=== PATIENT | female | born 1950 | race Caucasian/White ===

== ENCOUNTER 2019-05-13 03:51 | Observation (INO) ==
[2019-05-13] MEDS ORDERED: ONDANSETRON 4 MG/2 ML VIAL IV STA (04:21)
[2019-05-13] MEDS ORDERED: SODIUM CHLORIDE 0.9% 500 ML IV STA (04:21)
[2019-05-13] MEDS ORDERED: PANTOPRAZOLE 40 MG VIAL IV STA (04:21)
[2019-05-13 04:36] LABS: Basophils % 0.2 % (0.0-0.8); Hematocrit 32.9 VOL% (35.7-47.0); Immature Granulocytes % 0.7 %; Immature Granulocytes Absolute 0.09 #; Lymphocytes # 1.8 10*3/uL (1.4-4.0); Lymphocytes % 14.6 % (21.3-54.2); Mean Corpuscular HGB Conc 30.4 GM/DL (32-36); Mean Corpuscular Volume 88.7 FL (87-102); Mean Platelet Volume 11.2 FL (9.6-12.0); Monocytes % 9.7 % (1.7-12.7); Neutrophils % 74.8 % (38.7-73.9); Platelet Count 293 T/CUMM (130-400); Red Blood Count 3.71 MC/CUMM (3.8-5.5); Red Cell Distribution Width 24.4 % (9.3-17.3); White Blood Count 12.5 T/CUMM (4-12)
[2019-05-13 05:07] LABS: Alanine Aminotransferase 22 U/L (13-56); Albumin 2.8 G/DL (3.4-5.0); Alkaline Phosphatase 84 U/L (45-117); Amylase 58 U/L (25-115); Aspartate Amino Transferase 16 U/L (0-37); Bilirubin,Total < 0.39 MG/DL (0.2-1.0); Blood Urea Nitrogen 47 MG/DL (7-18); Calcium 8.4 MG/DL (8.5-10.1); Glucose 118 MG/DL (74-106); Osmolality,Calculated 293.3 MOS/KG (273-304); Total Protein 6.1 G/DL (6.4-8.3)
[2019-05-13 05:12] LABS: Hypochromasia Slight; Platelet Estimate Normal
[2019-05-13] MEDS ORDERED: NICOTINE 21 MG/24 HR PATCH TRANSDERM PRN (05:48)
[2019-05-13] MEDS ORDERED: PROMETHAZINE 25 MG/1 ML VIAL IM PRN (05:48)
[2019-05-13] MEDS ORDERED: MORPHINE 4 MG/1 ML VIAL IV PRN (05:48)
[2019-05-13] MEDS ORDERED: ONDANSETRON 4 MG/2 ML VIAL IV PRN (05:48)
[2019-05-13] MEDS: SODIUM CHLORIDE 0.9% 1,000 ML IV SCH (09:01)
[2019-05-13] MEDS: SERTRALINE 100 MG TABLET PO SCH (09:06)
[2019-05-13 12:49] LABS: Basophils % 0.3 % (0.0-0.8); Hematocrit 28.2 VOL% (35.7-47.0); Hemoglobin 8.9 GM/DL (12.0-16.0); Immature Granulocytes % 0.5 %; Immature Granulocytes Absolute 0.05 #; Lymphocytes # 2.9 10*3/uL (1.4-4.0); Mean Corpuscular HGB Conc 31.6 GM/DL (32-36); Mean Corpuscular Volume 88.1 FL (87-102); Mean Platelet Volume 11.3 FL (9.6-12.0); Monocytes % 9.3 % (1.7-12.7); Neutrophils % 59.9 % (38.7-73.9); Platelet Count 265 T/CUMM (130-400); White Blood Count 9.6 T/CUMM (4-12)
[2019-05-13 13:06] LABS: Platelet Estimate Normal
[2019-05-13 13:07] LABS: Anisocytosis 1+
[2019-05-13] MEDS ORDERED: predniSONE 20 MG TABLET PO SCH (15:00)
[2019-05-13 15:37] LABS: Apearance,Urine CLEAR (Clear); Bacteria,Urine Occasional /HPF (Few); Bilirubin,Urine Negative (Negative); Blood, Urine Negative (Negative); Glucose,Urine (UA) Negative (Negative); Ketones,Urine Negative (Negative); Mucus,Urine Occasional /LPF (Occasional); Nitrite,Urine Negative (Negative); Protein,Urine Negative; RBC,Urine 4 /HPF (0-4); Squamous Epithelial Cell,Urine Occasional /HPF (0-10); Urine Color Yellow (Yellow); Urine Specific Gravity 1.044 (1.001-1.035); Urine Urobilinogen < 2.0 EU/DL (0.2-1.0); WBC,Urine 4 /HPF (0-6)
[2019-05-13 16:51] LABS: Hemoglobin 8.4 GM/DL (12.0-16.0)
[2019-05-13] MEDS ORDERED: SODIUM CHLORIDE 0.9% 1,000 ML IV PRN (19:55)
[2019-05-13 20:24] LABS: Hemoglobin 8.9 GM/DL (12.0-16.0)
[2019-05-13] MEDS: PANTOPRAZOLE 40 MG VIAL IV SCH (22:50)
[2019-05-13] MEDS ORDERED: diphenhydrAMINE CAP 25 MG CAPSULE PO ONE (23:28)
[2019-05-14] MEDS: SODIUM CHLORIDE 0.9% 1,000 ML IV SCH (03:50)
[2019-05-14 05:20] LABS: Basophils % 0.4 % (0.0-0.8); Eosinophils % 0.3 % (0.00-10.9); Hematocrit 23.1 VOL% (35.7-47.0); Hemoglobin 7.1 GM/DL (12.0-16.0); Immature Granulocytes % 0.7 %; Immature Granulocytes Absolute 0.05 #; Lymphocytes # 3.1 10*3/uL (1.4-4.0); Lymphocytes % 41.5 % (21.3-54.2); Mean Corpuscular HGB Conc 30.7 GM/DL (32-36); Mean Corpuscular Volume 88.8 FL (87-102); Mean Platelet Volume 11.1 FL (9.6-12.0); Monocytes % 9.4 % (1.7-12.7); Neutrophils % 47.7 % (38.7-73.9); Platelet Count 206 T/CUMM (130-400); White Blood Count 7.4 T/CUMM (4-12)
[2019-05-14 05:33] LABS: Calcium 8.1 MG/DL (8.5-10.1); Osmolality,Calculated 294.8 MOS/KG (273-304)
[2019-05-14 05:45] LABS: Hypochromasia 1+; Ovalocytes 1+; Platelet Estimate Normal
[2019-05-14] MEDS ORDERED: PROPOFOL 200 MG/20 ML VIAL IV ONE (09:00)
[2019-05-14] MEDS ORDERED: LIDOCAINE 2% 5 ML VIAL ONE (09:00)
[2019-05-14] MEDS: LETROZOLE 2.5 MG TABLET PO SCH (10:40)
[2019-05-14] MEDS: SERTRALINE 100 MG TABLET PO SCH (10:40)
[2019-05-14] MEDS: FUROSEMIDE 20 MG/2 ML VIAL IV PRN ×2 (11:50→15:14)
[2019-05-14] MEDS: PANTOPRAZOLE 40 MG VIAL IV SCH (11:50)
[2019-05-14 16:51] LABS: Hematocrit 33.5 VOL% (35.7-47.0)
[2019-05-14 16:54] LABS: Hemoglobin 10.8 GM/DL (12.0-16.0)
[2019-05-14] MEDS ORDERED: predniSONE 20 MG TABLET PO SCH (21:00)
[2019-05-14] MEDS: PANTOPRAZOLE 40 MG TABLET PO SCH (21:47)
[2019-05-15 05:43] LABS: Basophils % 0.6 % (0.0-0.8); Eosinophils # 0.1 10*3/uL (0.0-0.87); Eosinophils % 1.6 % (0.00-10.9); Hematocrit 31.5 VOL% (35.7-47.0); Hemoglobin 10.1 GM/DL (12.0-16.0); Immature Granulocytes % 0.7 %; Immature Granulocytes Absolute 0.05 #; Lymphocytes # 2.4 10*3/uL (1.4-4.0); Mean Corpuscular HGB Conc 32.1 GM/DL (32-36); Mean Platelet Volume 11.5 FL (9.6-12.0); Monocytes % 9.9 % (1.7-12.7); Neutrophils % 52.2 % (38.7-73.9); Platelet Count 214 T/CUMM (130-400); Red Blood Count 3.62 MC/CUMM (3.8-5.5); Red Cell Distribution Width 21.1 % (9.3-17.3); White Blood Count 6.9 T/CUMM (4-12)
[2019-05-15 06:02] LABS: Calcium 8.6 MG/DL (8.5-10.1)
[2019-05-15] MEDS: SERTRALINE 100 MG TABLET PO SCH (08:44)
[2019-05-15] MEDS: LETROZOLE 2.5 MG TABLET PO SCH (08:44)
[2019-05-15] MEDS: PANTOPRAZOLE 40 MG TABLET PO SCH (08:44)
[2019-05-15 12:00] VITALS: BP 164/74
== END 2019-05-15 13:05 | disposition home or self-care (01) ==
LOC: EDUNIT# → N.EDINP 03:51 → N.ED 03:51 → N.2E 06:54
PROVIDERS: ADMIT Internal Medicine; ATTEND Internal Medicine

== ENCOUNTER 2020-02-17 21:16 | Inpatient (IN) ==
[2020-02-17] MEDS ORDERED: AZITHROMYCIN INJ 500 MG in SODIUM CHLORIDE 0.9% 250 ML IV STA (22:01)
[2020-02-17] MEDS ORDERED: ONDANSETRON 4 MG/2 ML VIAL IV STA (22:01)
[2020-02-17] MEDS ORDERED: methylPREDNISolone SOD SUC 125 MG/2 ML VIAL IV STA (22:01)
[2020-02-17 22:17] LABS: Basophils % 0.2 % (0.0-0.8); Eosinophils # 0.1 10*3/uL (0.0-0.87); Eosinophils % 1.8 % (0.00-10.9); Hematocrit 37.8 VOL% (35.7-47.0); Hemoglobin 12.1 GM/DL (12.0-16.0); Immature Granulocytes % 0.7 %; Immature Granulocytes Absolute 0.03 #; Lymphocytes # 0.3 10*3/uL (1.4-4.0); Lymphocytes % 7.3 % (21.3-54.2); Mean Corpuscular Volume 89.8 FL (87-102); Mean Platelet Volume 11.3 FL (9.6-12.0); Monocytes % 2.5 % (1.7-12.7); Neutrophils % 87.5 % (38.7-73.9); Platelet Count 158 T/CUMM (130-400); Red Blood Count 4.21 MC/CUMM (3.8-5.5); Red Cell Distribution Width 14.1 % (9.3-17.3); White Blood Count 4.4 T/CUMM (4-12)
[2020-02-17 22:27] LABS: PT Patient Result 10.3 SECS (9.8-11.9)
[2020-02-17 22:32] LABS: Albumin 3.6 G/DL (3.4-5.0); Bilirubin,Total 0.7 MG/DL (0.2-1.0); Calcium 8.6 MG/DL (8.5-10.1); Ferritin 9.9 ng/ml (8-252); Osmolality,Calculated 276.8 MOS/KG (273-304); Total Protein 6.9 G/DL (6.4-8.3)
[2020-02-17] MEDS ORDERED: MAGNESIUM SULF RIDER 2 GM in PREMIX 1 EACH IV STA (22:53)
[2020-02-17] MEDS ORDERED: POTASSIUM CHLORIDE 20 MEQ TABLET PO STA (22:54)
[2020-02-17 23:17] LABS: Apearance,Urine CLEAR (Clear); Blood, Urine Negative (Negative); Glucose,Urine (UA) Negative (Negative); Hyaline Casts,Urine 1 /LPF (0-3); Ketones,Urine Negative (Negative); Mucus,Urine Few /LPF (Occasional); Nitrite,Urine Negative (Negative); Protein,Urine Negative; RBC,Urine 1 /HPF (0-4); Urine Color Amber (Yellow); Urine Specific Gravity 1.028 (1.001-1.035); Urine Urobilinogen < 2.0 EU/DL (0.2-1.0); WBC,Urine 1 /HPF (0-6)
[2020-02-17 23:19] LABS: Bilirubin,Urine Small mg/dL (Negative)
[2020-02-18] MEDS ORDERED: ACETAMINOPHEN 500 MG TABLET ONE
[2020-02-18] MEDS ORDERED: ACETAMINOPHEN 500 MG TABLET PO STA (00:27)
[2020-02-18] MEDS ORDERED: guaiFENesin/DM ER 600-30 MG TABLET PO PRN (01:22)
[2020-02-18] MEDS ORDERED: NICOTINE 21 MG/24 HR PATCH TRANSDERM PRN (01:22)
[2020-02-18] MEDS ORDERED: GLUCAGON 1 MG VIAL IM PRN (01:22)
[2020-02-18] MEDS ORDERED: diphenhydrAMINE CAP 25 MG CAPSULE PO PRN (01:22)
[2020-02-18] MEDS ORDERED: ALUMINUM/MAGNES/SIMETH MAX STR 30 ML UDCUP PO PRN (01:22)
[2020-02-18] MEDS ORDERED: ONDANSETRON 4 MG/2 ML VIAL IV PRN (01:22)
[2020-02-18] MEDS ORDERED: hydrALAZINE 20 MG/1 ML VIAL IV PRN (01:22)
[2020-02-18] MEDS ORDERED: DEXTROSE 10% 250 ML BAG IV PRN (01:25)
[2020-02-18] MEDS ORDERED: cefTRIAXone 1,000 MG in SYRINGE 1 EACH IV SCH (02:00)
[2020-02-18] MEDS: SODIUM CHLORIDE 0.9% 1,000 ML IV SCH ×2 (02:02→12:21)
[2020-02-18] MEDS: AZITHROMYCIN 250 MG TABLET PO SCH (09:38)
[2020-02-18 10:35] LABS: Alanine Aminotransferase 19 U/L (13-56); Albumin 2.7 G/DL (3.4-5.0); Alkaline Phosphatase 58 U/L (45-117); Aspartate Amino Transferase 12 U/L (0-37); Bilirubin,Total < 0.39 MG/DL (0.2-1.0); Blood Urea Nitrogen 16 MG/DL (7-18); Calcium 7.6 MG/DL (8.5-10.1); Estimated Glom Filtration Rate 53 ML/MIN; Glucose 178 MG/DL (74-106); Total Protein 5.9 G/DL (6.4-8.3)
[2020-02-18] MEDS ORDERED: POTASSIUM CHLORIDE 20 MEQ TABLET PO ONE (12:00)
[2020-02-18] MEDS: ACETAMINOPHEN 325 MG TABLET PO PRN ×2 (12:21→17:45)
[2020-02-18] MEDS: VANCOMYCIN INJ 1,500 MG in SODIUM CHLORIDE 0.9% 500 ML IV SCH (13:00)
[2020-02-18] MEDS: CEFEPIME 1,000 MG in SODIUM CHLORIDE 0.9% 100 ML IV SCH ×2 (15:18→22:37)
[2020-02-19] MEDS: SODIUM CHLORIDE 0.9% 1,000 ML IV SCH ×2 (02:02→16:23)
[2020-02-19] MEDS: CEFEPIME 1,000 MG in SODIUM CHLORIDE 0.9% 100 ML IV SCH ×4 (03:35→20:50)
[2020-02-19] MEDS: AZITHROMYCIN 250 MG TABLET PO SCH (09:19)
[2020-02-19] MEDS: VANCOMYCIN INJ 1,500 MG in SODIUM CHLORIDE 0.9% 500 ML IV SCH (11:34)
[2020-02-19 11:48] LABS: Basophils % 0.2 % (0.0-0.8); Eosinophils # 0.1 10*3/uL (0.0-0.87); Eosinophils % 0.6 % (0.00-10.9); Hemoglobin 11.2 GM/DL (12.0-16.0); Immature Granulocytes % 1.4 %; Immature Granulocytes Absolute 0.12 #; Lymphocytes # 0.9 10*3/uL (1.4-4.0); Lymphocytes % 10.2 % (21.3-54.2); Mean Corpuscular Volume 91.9 FL (87-102); Mean Platelet Volume 11.3 FL (9.6-12.0); Monocytes % 5.2 % (1.7-12.7); Neutrophils % 82.4 % (38.7-73.9); Platelet Count 163 T/CUMM (130-400); Red Blood Count 3.81 MC/CUMM (3.8-5.5); Red Cell Distribution Width 15.1 % (9.3-17.3); White Blood Count 8.5 T/CUMM (4-12)
[2020-02-19] MEDS: ACETAMINOPHEN 325 MG TABLET PO PRN (11:50)
[2020-02-19 12:02] LABS: Calcium 8.3 MG/DL (8.5-10.1)
[2020-02-20] MEDS: SODIUM CHLORIDE 0.9% 1,000 ML IV SCH ×4 (00:24→15:32)
[2020-02-20] MEDS: CEFEPIME 1,000 MG in SODIUM CHLORIDE 0.9% 100 ML IV SCH ×4 (03:32→20:18)
[2020-02-20] MEDS: AZITHROMYCIN 250 MG TABLET PO SCH (09:28)
[2020-02-20 10:57] LABS: Basophils % 0.4 % (0.0-0.8); Eosinophils # 0.1 10*3/uL (0.0-0.87); Eosinophils % 1.9 % (0.00-10.9); Hematocrit 33.6 VOL% (35.7-47.0); Hemoglobin 10.6 GM/DL (12.0-16.0); Immature Granulocytes % 0.6 %; Immature Granulocytes Absolute 0.04 #; Lymphocytes # 1.2 10*3/uL (1.4-4.0); Lymphocytes % 17.3 % (21.3-54.2); Mean Corpuscular HGB Conc 31.5 GM/DL (32-36); Mean Corpuscular Volume 92.1 FL (87-102); Mean Platelet Volume 10.8 FL (9.6-12.0); Monocytes % 7.5 % (1.7-12.7); Neutrophils % 72.3 % (38.7-73.9); Platelet Count 161 T/CUMM (130-400); Red Blood Count 3.65 MC/CUMM (3.8-5.5); Red Cell Distribution Width 14.9 % (9.3-17.3); White Blood Count 6.8 T/CUMM (4-12)
[2020-02-20 11:25] LABS: Calcium 7.7 MG/DL (8.5-10.1); Osmolality,Calculated 279.3 MOS/KG (273-304)
[2020-02-20] MEDS: VANCOMYCIN INJ 1,500 MG in SODIUM CHLORIDE 0.9% 500 ML IV SCH (11:38)
[2020-02-20] MEDS: POTASSIUM CHLORIDE 20 MEQ TABLET PO PRN ×3 (13:03→17:28)
[2020-02-21] MEDS: VANCOMYCIN INJ 1,500 MG in SODIUM CHLORIDE 0.9% 500 ML IV SCH ×2 (01:43→14:35)
[2020-02-21] MEDS: CEFEPIME 1,000 MG in SODIUM CHLORIDE 0.9% 100 ML IV SCH ×4 (03:05→21:00)
[2020-02-21 04:36] LABS: Basophils % 0.3 % (0.0-0.8); Eosinophils # 0.2 10*3/uL (0.0-0.87); Eosinophils % 3.8 % (0.00-10.9); Hemoglobin 11.5 GM/DL (12.0-16.0); Immature Granulocytes % 0.8 %; Immature Granulocytes Absolute 0.05 #; Lymphocytes # 1.5 10*3/uL (1.4-4.0); Lymphocytes % 23.7 % (21.3-54.2); Mean Corpuscular HGB Conc 32.9 GM/DL (32-36); Mean Corpuscular Volume 89.1 FL (87-102); Mean Platelet Volume 11.5 FL (9.6-12.0); Monocytes % 9.7 % (1.7-12.7); Neutrophils % 61.7 % (38.7-73.9); Platelet Count 163 T/CUMM (130-400); Red Blood Count 3.93 MC/CUMM (3.8-5.5); Red Cell Distribution Width 14.6 % (9.3-17.3); White Blood Count 6.4 T/CUMM (4-12)
[2020-02-21 05:00] LABS: Calcium 9.1 MG/DL (8.5-10.1); Osmolality,Calculated 271.8 MOS/KG (273-304)
[2020-02-21] MEDS: SODIUM CHLORIDE 0.9% 1,000 ML IV SCH ×3 (07:25→19:48)
[2020-02-21] MEDS ORDERED: LIDOCAINE 2%/EPI 20 ML VIAL ONE (09:13)
[2020-02-21] MEDS: AZITHROMYCIN 250 MG TABLET PO SCH ×4 (10:43→10:45)
[2020-02-21] MEDS ORDERED: propofoL 200 MG/20 ML VIAL IV ONE (11:54)
[2020-02-21] MEDS ORDERED: LIDOCAINE 2% 5 ML VIAL ONE (11:54)
[2020-02-21] MEDS ORDERED: ONDANSETRON 4 MG/2 ML VIAL ONE (11:55)
[2020-02-21] MEDS ORDERED: fentaNYL 100 MCG/2 ML VIAL ONE (11:55)
[2020-02-21] MEDS ORDERED: MIDAZOLAM 2 MG/2 ML VIAL ONE (11:55)
[2020-02-21] MEDS: PANTOPRAZOLE 20 MG TABLET PO SCH (21:00)
[2020-02-22] MEDS: CEFEPIME 1,000 MG in SODIUM CHLORIDE 0.9% 100 ML IV SCH ×4 (02:10→21:52)
[2020-02-22] MEDS: SODIUM CHLORIDE 0.9% 1,000 ML IV SCH ×2 (04:49→14:45)
[2020-02-22 06:28] LABS: Basophils % 0.3 % (0.0-0.8); Eosinophils # 0.2 10*3/uL (0.0-0.87); Eosinophils % 3.4 % (0.00-10.9); Hemoglobin 11.3 GM/DL (12.0-16.0); Immature Granulocytes % 0.7 %; Immature Granulocytes Absolute 0.04 #; Lymphocytes # 1.3 10*3/uL (1.4-4.0); Mean Corpuscular HGB Conc 32.3 GM/DL (32-36); Mean Corpuscular Volume 89.5 FL (87-102); Mean Platelet Volume 11.1 FL (9.6-12.0); Monocytes % 10.5 % (1.7-12.7); Neutrophils % 63.1 % (38.7-73.9); Platelet Count 181 T/CUMM (130-400); Red Blood Count 3.91 MC/CUMM (3.8-5.5); Red Cell Distribution Width 14.5 % (9.3-17.3); White Blood Count 5.8 T/CUMM (4-12)
[2020-02-22 06:54] LABS: Calcium 8.7 MG/DL (8.5-10.1)
[2020-02-22] MEDS: PANTOPRAZOLE 20 MG TABLET PO SCH ×2 (09:10→21:52)
[2020-02-22] MEDS: MONTELUKAST 10 MG TABLET PO SCH (09:10)
[2020-02-22] MEDS: LETROZOLE 2.5 MG TABLET PO SCH (09:10)
[2020-02-22] MEDS: ATORVASTATIN 20 MG TABLET PO SCH (09:10)
[2020-02-22] MEDS: SERTRALINE 100 MG TABLET PO SCH (09:10)
[2020-02-22] MEDS: VANCOMYCIN INJ 1,500 MG in SODIUM CHLORIDE 0.9% 500 ML IV SCH ×2 (11:25)
[2020-02-22] MEDS: traMADol 50 MG TABLET PO PRN (21:52)
[2020-02-23] MEDS: CEFEPIME 1,000 MG in SODIUM CHLORIDE 0.9% 100 ML IV SCH ×3 (04:28→16:37)
[2020-02-23] MEDS: SODIUM CHLORIDE 0.9% 1,000 ML IV SCH (04:29)
[2020-02-23] MEDS: traMADol 50 MG TABLET PO PRN (05:00)
[2020-02-23 05:57] LABS: Basophils % 0.5 % (0.0-0.8); Eosinophils # 0.3 10*3/uL (0.0-0.87); Eosinophils % 4.8 % (0.00-10.9); Hematocrit 34.3 VOL% (35.7-47.0); Hemoglobin 10.8 GM/DL (12.0-16.0); Immature Granulocytes % 0.7 %; Immature Granulocytes Absolute 0.04 #; Lymphocytes # 1.7 10*3/uL (1.4-4.0); Mean Corpuscular HGB Conc 31.5 GM/DL (32-36); Mean Platelet Volume 10.8 FL (9.6-12.0); Monocytes % 12.4 % (1.7-12.7); Neutrophils % 52.6 % (38.7-73.9); Platelet Count 215 T/CUMM (130-400); Red Blood Count 3.81 MC/CUMM (3.8-5.5); Red Cell Distribution Width 14.3 % (9.3-17.3); White Blood Count 5.8 T/CUMM (4-12)
[2020-02-23 06:18] LABS: Calcium 8.8 MG/DL (8.5-10.1); Osmolality,Calculated 273.7 MOS/KG (273-304)
[2020-02-23] MEDS: SERTRALINE 100 MG TABLET PO SCH (09:15)
[2020-02-23] MEDS: MONTELUKAST 10 MG TABLET PO SCH (09:15)
[2020-02-23] MEDS: ATORVASTATIN 20 MG TABLET PO SCH (09:15)
[2020-02-23] MEDS: PANTOPRAZOLE 20 MG TABLET PO SCH (09:15)
[2020-02-23] MEDS: LETROZOLE 2.5 MG TABLET PO SCH (09:15)
[2020-02-23] MEDS: VANCOMYCIN INJ 1,500 MG in SODIUM CHLORIDE 0.9% 500 ML IV SCH ×2 (12:26)
[2020-02-23 12:30] VITALS: BP 125/48
[2020-02-24] MEDS ORDERED: VANCOMYCIN INJ 1,250 MG in SODIUM CHLORIDE 0.9% 250 ML IV SCH (09:00)
== END 2020-02-23 16:30 | disposition home health service (06) | DRG 314 ==
LOC: N.EDINP 21:16 → N.ED 21:16 → N.EDINP 02-18 02:25 → N.2E 02-18 03:10 → SUATTDRO 02-18 10:18
PROVIDERS: ADMIT Internal Medicine; ATTEND Family Medicine